=== PATIENT | female | born 1990 ===

== ENCOUNTER 2025-06-10 15:53 | Outpatient (REF) | payer OTHER, SELFPAY ==
--- OUTSIDE RECORDS SUMMARY | 2023-12-31 09:35 | XMS_ITS ---
Author Organization [facility] Address [address] [place] [address] Care Team Providers Care Shingle Shearing Machine Operator Name Role Phone Megan Isidro Primary Care Provider [phone] Nubia Garcia [phone] REASON FOR VISIT PROPHY-pt cancelled via portal Encounters Encounter Location Date Provider Diagnosis [facility] [address] [address] 12/31/2023 Nubia Terrell Plan Of Treatment No Information Progress Notes * GUIDO GARCIA EDOB:[birth year] (34 yo F)Acc No.[id number]:12/31/2023 Patient: COOKIE TIDWELLBY Cherrie Provider: Nathan Gross :1990 A ge:33 Y S ex:Female Date:12/31/2023 [address] [facility] Pcp:Megan Isidro Subjective: * Chief Complaints: * 1 . PROPHY-pt cancelled via portal. * Medical History: Objective: * Vitals: Assessment: Plan: * Treatment: * Images: * Electronic signature of Desiree Terrell on 06/10/2025 at 03:58 PM EDT Sign off status: Pending * Provider: Nathan Gross Date: 0 12/31/2023 Generated for Leyda douglas/Ivan/eTransmitting on: 0 06/10/2025 03:58 PM EDT
--- OUTSIDE RECORDS SUMMARY | 2025-06-10 11:30 | XMS_ITS | Encounter Summary ---
Author Organization [facility] Address [address] [facility] [place] [address] Care Team Providers Care Ror Engineer Name Role Phone Unavailable Primary Care Provider Unavailabl e Reason for Visit * Reason Comments Gynecologic Exam Encounter Details Date Type Department Care Team (Latest Contact Info) Description 06/10/2025 11:30 AM EDT Procedure Visit [facility] [address] [place] [id number] Chelsea Maravilla PA [address] [facility] [address] [place], [place] [id number] Well woman exam with routine gynecological exam Social History Tobacco Use Types Packs/Day Years Used Date Smoking Tobacco: Never Assessed Comments No Sex and Gender Information Value Date Recorded Sex Assigned at Not on file Legal Sex Female 11:52 PM EDT Gender Identity Not on file Sexual Orientation Not on file documented as of this encounter Last Filed Vital Signs Vital Sign Reading Time Taken Comments Blood Pressure 108/70 06/10/2025 11:48 AM EDT Pulse - - Temperature - - Respiratory Rate - - Oxygen Saturation - - Inhaled Oxygen Concentration - - Weight 77.6 kg (171 lb) 06/10/2025 11:48 AM EDT Height 157.5 cm (5' 2 ) 06/10/2025 11:48 AM EDT Body Mass Index 31.28 06/10/2025 11:48 AM EDT documented in this encounter Progress Notes * SILVIA Ewing - 06/10/2025 11:30 AM EDT Reason for Appointment: Patient ID: Vianey Rico is a 34 y.o. female who presents for Gynecologic Exam Patient presents today for Annual Exam. MEDICATIONS No current outpatient medications ALLERGIES No Known Allergies PROBLEMS Active Ambulatory Problems Diagnosis Date Noted No Active Ambulatory Problems Resolved Ambulatory Problems Diagnosis Date Noted No Resolved Ambulatory Problems No Additional Past Medical History HISTORY PAST MEDICAL HISTORY SOCIAL HISTORY No past medical history on file. Social History Tobacco Use Smoking status: Not on file Smokeless tobacco: Not on file Substance Use Topics Alcohol use: Not on file Drug use: Not on file FAMILY HISTORY No family history on file. SURGICAL HISTORY History reviewed. No pertinent surgical history. REVIEW OF SYSTEMS Review of Systems: Review of Systems Constitutional: Negative. HENT: Negative. Eyes: Negative. Respiratory: Negative. Cardiovascular: Negative. Gastrointestinal: Negative. Genitourinary: Negative. Musculoskeletal: Negative. Skin: Negative. Neurological: Negative. All other systems reviewed and are negative. Hematological: Negative. Endocrine: Negative. Allergic/Immunologic: Negative. OBJECTIVE Objective: Physical Exam Constitutional: Appearance: Normal appearance. She is well-developed. Genitourinary: Vulva normal. Right Adnexa: not tender and no mass present. Left Adnexa: not tender and no mass present. No cervical discharge. Breasts: Breasts are soft. Right: Normal. Left: Normal. HENT: Head: Normocephalic. Nose: Nose normal. Mouth/Throat: Mouth: Mucous membranes are moist. Cardiovascular: Rate and Rhythm: Normal rate and regular rhythm. Pulmonary: Effort: Pulmonary effort is normal. Breath sounds: Normal breath sounds. Abdominal: General: Bowel sounds are normal. There is no distension. Palpations: Abdomen is soft. Tenderness: There is no abdominal tenderness. There is no guarding or rebound. Musculoskeletal: General: No swelling. Normal range of motion. Cervical back: Normal range of motion. Right lower leg: No edema. Left lower leg: No edema. Neurological: General: No focal deficit present. Mental Status: She is alert and oriented to person, place, and time. Skin: General: Skin is warm and dry. Psychiatric: Mood and Affect: Mood normal. Behavior: Behavior normal. Vitals and nursing note reviewed. Exam conducted with a substation operator transforming present. Vitals: Estimated body mass index is 31.28 kg/m?? as calculated from the following: Height as of this encounter: 5' 2 . Weight as of this encounter: 171 lb. BP: Patient's last menstrual period was 05/25/2025 (approximate). ASSESSMENT & PLAN ICD-10-CM 1. Well woman exam with routine gynecological exam Z01.419 Pap Smear HPV DNA probe, amplified Annual Exam: Patient presents today for an annual exam. Patient states she is doing well and has no complaints. Pap was obtained without difficulty. Orders Placed This Encounter Procedures HPV DNA probe, amplified Follow Up: Patient is to return in one year for annual unless needed otherwise. Documented by Ivis Richard MA on behalf of: SILVIA Ewing documented in this encounter Plan of Treatment Upcoming Encounters Date Type Department Care Team (Late st Contact Info) Description 06/14/2026 10:00 AM EDT Procedure Visit [facility] [address] [place] [phone] Chelsea Maravilla PA [address] [place] [address] Scheduled Orders Name Type Priority Associated Diagnoses Orde r Schedule Pap Smear Pathology and Cytology Routine Well woman exam with routine gynecological exam Ordered: 06/10/2025 HPV DNA probe, amplified Microbiology Routine Well woman exam with routine gynecological exam Ordered: 06/10/2025 documented as of this encounter Visit Diagnoses Diagnosis Well woman exam with routine gynecological exam Routine gynecological examination documented in this encounter
--- OUTSIDE RECORDS SUMMARY | 2025-06-10 15:58 | XMS_ITS | Encounter Summary ---
Author Organization [facility] Address [address] [id number] Care Team Providers Care Water Main Pipe Layer Name Role Phone Tanisha Cabral DMD, MD Unavailable [phone] Encounter Details Date Type Department Care Team (Late st Contact Info) Description 03/16/2022 Abstract PATIENT ACUITY SCORE Social History Tobacco Use Types Packs/Day Years Used Date Smoking Tobacco: Never Smokeless Tobacco: Never Comments Unknown Sex and Gender Information Value Date Recorded Sex Assigned at Not on file Legal Sex Female 5:14 PM EDT Gender Identity Not on file Sexual Orientation Not on file documented as of this encounter Plan of Treatment Not on file documented as of this encounter Visit Diagnoses Not on filedocumented in this encounter Care Teams Water Main Pipe Layer Relationship Specialty Start Date End Date Tanisha Cabral DMD, MD [address] [place], [place] [phone] Physician Oral & Maxillofacial Surgery 07/22/21 documented as of this encounter
--- OUTSIDE RECORDS SUMMARY | 2025-06-10 15:58 | XMS_ITS | Clinical Summary ---
Author Organization [facility] Address [address] [facility] [place] [address] Care Team Providers Care Sports Lawyer Name Role Phone Unavailable Primary Care Provider Unavailabl e Allergies No known active allergies Medications No known medications Encounters Date Type Department Care Team Description 06/10/2025 11:30 AM EDT Procedure Visit [facility] [address] [place] [address] Chelsea Maravilla PA Well woman exam with routine gynecological exam 06/10/2025 Bamboo flowsheet [facility] RODRIG[facility] [address] [place] [address] Chelsea Maravilla PA from Last 3 Months Social History Tobacco Use Types Packs/Day Years Used Date Smoking Tobacco: Never Assessed Comments No Sex and Gender Information Value Date Recorded Sex Assigned at Not on file Legal Sex Female 11:52 PM EDT Gender Identity Not on file Sexual Orientation Not on file Last Filed Vital Signs Vital Sign Reading Time Taken Comments Blood Pressure 108/70 06/10/2025 11:48 AM EDT Pulse - - Temperature - - Respiratory Rate - - Oxygen Saturation - - Inhaled Oxygen Concentration - - Weight 77.6 kg (171 lb) 06/10/2025 11:48 AM EDT Height 157.5 cm (5' 2 ) 06/10/2025 11:48 AM EDT Body Mass Index 31.28 06/10/2025 11:48 AM EDT Plan of Treatment Upcoming Encounters Date Type Department Care Team (Late st Contact Info) Description 06/14/2026 10:00 AM EDT Procedure Visit [facility] RODRIGUE[facility] [address] [place] [address] Chelsea Maravilla PA [address] [place] [address] Health Maintenance Due Date Last Done Comments Pap Smear 2012 Cervical Cancer Screening 2021 HPV/Cotest 2021 Influenza Vaccine (#1) 2025 , 07/22/2020, 09/02/2019, Additional history exists Insurance [employer]
--- OUTSIDE RECORDS SUMMARY | 2025-06-10 15:58 | XMS_ITS | Clinical Summary ---
Author Organization [facility] Address [address] [facility] [place] [address] Care Team Providers Care Director Customer Name Role Phone Tanisha Cabral DMD, MD Unavailable [phone] Source Comments The following information is NOT included in Care Everywhere downloads:Psychiatric notes, ECG results, Cardiac Rehab notes, Pulmonary Function notes, data from SmartForms (includes but not limited toPregnancy data,audiograms, eye exams, pre-surgical evaluation notes, well-child exam data).[facility] Allergies No known active allergies Medications chlorhexidine (PERIDEX) 0.12 % oral solution Take 15 mL by mouth 2 times daily. 473 mL 1 07/14/2021 Active Immunizations Immunization Administration Dates Next Due Influenza, injectable, quadr ivalent, preservative free (UNX=223) 08/29/2021,07/22/2020,09/02/2019,2017 Influenza, injectable, triva lent, MDCK, preservative free (OGG=245) 09/18/2014 Influenza, injectable, triva lent, preservative (DAJ=763) 08/13/2012 Influenza, injectable, triva lent, preservative free (MSW=422) 10/10/2015,07/04/2015 Pfizer Monovalent (12+ yrs) SARS-COV-2 (COVID-19) vaccine, mRNA, spike protein, LNP, pres. free, 30 mcg/0.3mL dose (BDP=695) 01/06/2021,12/17/2020 Tdap (HRT=096) 01/23/2019,08/13/2012 Social History Tobacco Use Types Packs/Day Years Used Date Smoking Tobacco: Never Smokeless Tobacco: Never Comments Unknown Sex and Gender Information Value Date Recorded Sex Assigned at Not on file Legal Sex Female 5:14 PM EDT Gender Identity Not on file Sexual Orientation Not on file Last Filed Vital Signs Vital Sign Reading Time Taken Comments Blood Pressure 111/73 07/14/2021 9:25 AM EDT Pulse 105 07/14/2021 9:25 AM EDT Temperature 36.8 C (98.3 F) 07/14/2021 7:42 AM EDT Respiratory Rate 18 07/14/2021 9:10 AM EDT Oxygen Saturation 100% 07/14/2021 9:25 AM EDT Inhaled Oxygen Concentration - - Weight 62.4 kg (137 lb 9.1 oz) 07/14/2021 7:42 A M EDT Height 157.5 cm (5' 2 ) 07/14/2021 7:42 AM EDT Body Mass Index 25.16 07/14/2021 7:42 AM EDT Plan of Treatment Health Maintenance Due Date Last Done Comments HIV Test 2006 Hepatitis C Antibody 2009 Hepatitis A (HAV) Vaccine (optional start 19+ years) 2010 Hepatitis B (HBV) Vaccine (1 of 3 - 19+ 3-dose series) 2010 Pap Smear 2012 HPV Vaccine (optional start 27-45 years) 2018 COVID-19 Vaccine ( season) 2025 09/12/2021, 01/06/2021, 12/17/2020 Influenza Vaccine (#1) 2025 , 07/22/2020, 09/02/2019, Additional history exists Tetanus (Td or Tdap) Booster 01/23/2029 01/23/2019, 08/13/2012 Shingles (RZV) Vaccine (1 of 2) 2041 Tdap Booster Completed 01/23/2019, 08/13/2012 Mammography Discontinued Pneumococcal Vaccine(s) Aged Out No l onger eligible based on patient's age to complete this topic Insurance [facility] MEDICAID DENTAL-MEDICAID HMO Care Teams Director Customer Relationship Specialty Start Date End Date Tanisha Cabral DMD, MD [address] [place] [phone] Physician Oral & Maxillofacial Surgery 07/22/21
--- OUTSIDE RECORDS SUMMARY | 2025-06-10 15:58 | XMS_ITS | Encounter Summary ---
Author Organization [facility] Address [address] [phone] Care Team Providers Care Curtain Cutter Name Role Phone Tanisha Cabral DMD, MD Unavailable [phone] Encounter Details Date Type Department Care Team (Late st Contact Info) Description 12/15/2021 Abstract PATIENT ACUITY SCORE Social History Tobacco [...] on filedocumented in this encounter Care Teams Curtain Cutter Relationship Specialty Start Date End Date Tanisha Cabral DMD, MD [address] [place], [place] [phone] Physician Oral & Maxillofacial Surgery 07/22/21 documented as of this encounter
--- OUTSIDE RECORDS SUMMARY | 2025-06-10 15:59 | XMS_ITS | Encounter Summary ---
Author Organization [facility] Address [address] [facility] [place] [address] Care Team Providers Care Electronic Court Recorder Name Role Phone Unavailable Primary Care Provider Unavailabl e Encounter Details Date Type Department Care Team (Late Contact Info) Description 06/10/2025 Bamboo flowsheet [facility] [address] [facility] [place] [address] Chelsea Maravilla PA [address] [facility] [address] [place], [facility] Social History Tobacco Use Types Packs/Day Years Used Date Smoking Tobacco: Never Assessed Comments No Sex and Gender Information Value Date Recorded Sex Assigned at Not on file Legal Sex Female 11:52 PM EDT Gender Identity Not on file Sexual Orientation Not on file documented as of this encounter Plan of Treatment Upcoming Encounters Date Type Department Care Team (Late Contact Info) Description 06/14/2026 10:00 AM EDT Procedure Visit LEYLA RODRIGUEZ [address] [facility] [place] [phone] Chelsea Maravilla PA [address] [facility] [address] [place], [facility] documented as of this encounter Visit Diagnoses Not on filedocumented in this encounter
--- OUTSIDE RECORDS SUMMARY | 2025-06-10 15:59 | XMS_ITS | Patient Health Record ---
Author Organization [facility] Address [address] [place] [address] Care Team Providers Care Bed Teacher Name Role Phone Megan Isidro Primary Care Provider [phone] Reason For Referral No Information Medications Medication SIG (Take, Route, Frequency, Duration) Notes Start Date End Date Status Sprintec 28 Active Plan Of Treatment No Information Insurance Providers Payer Name Payer Address Payer Phone Subscriber Number Group Number Insured Name Patient Relationship to Insured Coverage Start Date Coverage End Date [employer] [place] Medicaid [address] [place] [phone] [id number] GUIDO GARCIA Self - patient is the insured 3 W[employer] [facility] [address] [place] [phone] [id number] GUIDO GARCIA Self - patient is the insured 3 zDental [employer] [place] Medicaid [address] [place] [address] [id number] GUIDO GARCIA Self - patient is the insured 3 Dental Wrap [facility] [address] [place] [address] [id number] GUIDO GARCIA Self - patient is the insured 3
[2025-06-16 11:08] LABS: Age Gdln ACOG Testing Note (.); IGP, Aptima HPV, rfx 16/18,45 Note (.)
== END 2025-06-10 15:54 | disposition home or self-care (01) ==
LOC: LAB 15:53
PROVIDERS: Visit Provider Physician Assistant
DX: Z01.419 Encounter for gynecological examination (general) (routine) without abnormal findings (principal)
CPT/HCPCS: 87624; 88175